=== PATIENT | female | born 1965 | race Caucasian/White ===

== ENCOUNTER 2024-07-22 07:02 | Day surgery (SDC) | payer MEDICAID ==
[~2024-07-22] VITALS: Ht 154.9 cm; Wt 70.8 kg
[2024-07-22] MEDS ORDERED: MEPERIDINE 100 MG INJ. 100 MG/ML VIAL ONE (07:10)
[2024-07-22] MEDS ORDERED: MIDAZOLAM HCL 5 MG/5 ML VIAL ONE (07:10)
[2024-07-22 12:22] VITALS: O2SAT 99
[2024-07-22 15:41] VITALS: BP_SYST 105; PULSE 58; RESP 16
== END 2024-07-22 12:16 | disposition home or self-care (01) ==
LOC: SDS 07:02 → SMU 07:03 → SDS 12:16
PROVIDERS: ATTEND Internal Medicine Gastroenterology
DX: R10.9 Unspecified abdominal pain (principal); K29.50 Unspecified chronic gastritis without bleeding; K31.7 Polyp of stomach and duodenum; K44.9 Diaphragmatic hernia without obstruction or gangrene; I10 Essential (primary) hypertension; K21.9 Gastro-esophageal reflux disease without esophagitis; Z88.0 Allergy status to penicillin; Z88.1 Allergy status to other antibiotic agents; Z79.899 Other long term (current) drug therapy
CPT/HCPCS: 43239; 88305; 88312; 88313; G0378; J2250; J2175